=== PATIENT | male | born 1945 | race Caucasian/White ===

== ENCOUNTER 2018-04-06 17:01 | Emergency (ER) | payer MEDICARE, OTHER ==
[~2018-04-06] VITALS: Ht 182.9 cm; Wt 77.1 kg
[~2018-04-06 17:01] MED LIST: ASPIRIN EC81 M1 PO; BACTRIM DS TAB1 EACH PO; CALCIUM500 MG PO; CRESTOR10 MG; DOXYCYCLINE 10100 MG PO; FLAGYL500 MG PO; FLOMAX; GLUCOSAMINE &1 EACH; GLUCOSAMINE1000 MG PO; IRON18 M1 PO; LIPITOR 20 MG T20 M1 PO; MULTIVITAMINS PO; NAPROSYN500 MG PO; NORCO 5-325 TA1 EACH PO; VITAMINC500 PO
[2018-04-06] MEDS ORDERED: AUGMENTIN 875-1 EACH PO (17:45)
[2018-04-06 19:08] VITALS: BP 160/94
== END 2018-04-06 19:09 | disposition home or self-care (01) ==
LOC: M.ERS 17:01
DX: S01.512A Laceration without foreign body of oral cavity, initial encounter (principal); S01.511A Laceration without foreign body of lip, initial encounter; Z98.890 Other specified postprocedural states; Z88.1 Allergy status to other antibiotic agents; Z88.8 Allergy status to other drugs, medicaments and biological substances; Z88.5 Allergy status to narcotic agent; Z88.6 Allergy status to analgesic agent; W10.8XXA Fall (on) (from) other stairs and steps, initial encounter; Y93.89 Activity, other specified; Y92.89 Other specified places as the place of occurrence of the external cause; Y99.8 Other external cause status

== ENCOUNTER 2021-01-23 11:32 | Emergency (ER) | payer MEDICARE, OTHER ==
[~2021-01-23] VITALS: Ht 182.9 cm; Wt 82.6 kg
[~2021-01-23 11:32] MED LIST changes: +AUGMENTIN 875-1 EACH PO
[2021-01-23] MEDS ORDERED: LIPITOR40 MG PO (11:45)
[2021-01-23] MEDS ORDERED: NEURONTIN100 MG PO (11:45)
[2021-01-23] MEDS ORDERED: ZETIA10 MG PO (11:56)
[2021-01-23 12:15] LABS: ABSOLUTE LYMPHOCYTES 0.9 thou/uL (0.8-5.3); ABSOLUTE MONOCYTES 0.2 thou/uL (0.0-1.2); BASOPHILS 0.2 %; EOSINOPHILS 0.5 %; HEMATOCRIT 40.4 % (42.0-52.0); HEMOGLOBIN 13.6 gm/dL (14.0-18.0); LYMPHOCYTES 16.7 %; MCH 33.2 pg (26.0-34.0); MCHC 33.6 g/dL (28.0-37.0); MCV 99.1 fL (80.0-100.0); MONOCYTES 4.8 %; MPV 7.1 fl. (7.2-11.1); NUCLEATED RBCS 0 /100WBC; PLATELET COUNT* 129 thou/uL (150-400); POLYS 77.8 %; RBC 4.08 mil/uL (4.50-6.00); RDW-CV 13.6 % (10.5-14.5); WBC 5.2 thou/uL (4.0-11.0)
[2021-01-23 12:30] LABS: ALBUMIN 3.4 g/dL (3.4-5.0); CALCIUM 8.4 mg/dL (8.5-10.1); MAGNESIUM 2.1 mg/dL (1.8-2.4); POTASSIUM 3.8 mmol/L (3.5-5.1); TOTAL BILIRUBIN 0.5 mg/dL (<0.1-1.0); TOTAL PROTEIN 6.6 g/dL (6.4-8.2)
[2021-01-23] MEDS ORDERED: ASA81BEC PO (12:35)
[2021-01-23] MEDS ORDERED: FLEXERIL PO (13:06)
[2021-01-23] MEDS ORDERED: MEDROLDOSEPACK PO (13:06)
[2021-01-23 13:15] VITALS: BP 134/72
== END 2021-01-23 13:16 | disposition home or self-care (01) ==
LOC: M.ERS 11:32
PROVIDERS: Nurse Practitioner Family
DX: S39.012A Strain of muscle, fascia and tendon of lower back, initial encounter (principal); M54.41 Lumbago with sciatica, right side; Z88.1 Allergy status to other antibiotic agents; Z88.8 Allergy status to other drugs, medicaments and biological substances; Z88.6 Allergy status to analgesic agent; Z95.5 Presence of coronary angioplasty implant and graft; Z98.890 Other specified postprocedural states; Z79.899 Other long term (current) drug therapy; X58.XXXA Exposure to other specified factors, initial encounter; Y93.89 Activity, other specified; Y92.89 Other specified places as the place of occurrence of the external cause; Y99.8 Other external cause status